=== PATIENT | female | born 1970 | race Caucasian/White ===

== ENCOUNTER 2017-05-10 20:38 | Emergency (ER) | payer OTHER ==
[~2017-05-10] VITALS: Ht 162.6 cm; Wt 89.0 kg
[~2017-05-10 20:38] MED LIST: ATAZ100 PO; CYMB30CA PO; RITO100 PO; Subutex; TRUVTAB2 PO
[2017-05-10 20:52] VITALS: BP 163/70; PULSE 116; RESP 17; TEMP 99.9; O2SAT 98
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
[2017-05-10 21:21] LABS: AUTOMATED NEUTROPHIL # 8.6 TH/MM3 (1.8-7.7); BASOPHIL % 0.1 % (0.0-2.0); EOSINOPHIL % 0.4 % (0.0-4.0); HEMATOCRIT 40.4 % (35.0-46.0); HEMO FLAGS DIFF FINAL; LYMPH % 11.1 % (9.0-44.0); LYMPHOCYTE # 1.2 TH/MM3 (1.0-4.8); MEAN CORPUSCULAR HEMOGLOBIN 31.9 PG (27.0-34.0); MEAN CORPUSCULAR HGB CONC 33.9 % (32.0-36.0); MONO % 8.2 % (0.0-8.0); NEUT % 80.2 % (16.0-70.0); PLATELET COUNT 252 TH/MM3 (150-450); RED CELL DISTRIBUTION WIDTH 14.1 % (11.6-17.2); WHITE BLOOD COUNT 10.7 TH/MM3 (4.0-11.0)
[2017-05-10 21:30] LABS: AMPHETAMINE, URINE NEG (NEG); BARBITURATES, URINE NEG (NEG); COCAINE, URINE POS (NEG)
[2017-05-10 21:39] LABS: ALT (GPT) 39 U/L (10-53)
[2017-05-10 21:41] LABS: ALKALINE PHOSPHATASE 66 U/L (45-117); TOTAL BILIRUBIN ADULT 0.6 MG/DL (0.2-1.0)
[2017-05-10 21:42] LABS: ANION GAP 7 MEQ/L (5-15); AST (GOT) 31 U/L (15-37); BICARBONATE 23.6 MEQ/L (21.0-32.0); BLOOD UREA NITROGEN 21 MG/DL (7-18); CHLORIDE 108 MEQ/L (98-107); GLOMERULAR FILTRATION RATE 51 ML/MIN (>89); POTASSIUM 3.4 MEQ/L (3.5-5.1); SODIUM (NA) 139 MEQ/L (136-145)
[2017-05-10] MEDS ORDERED: SODIUM CHLOR 0.9% 1000 ML INJ 1,000 ML IV ONE ×2 (21:45→22:30)
[2017-05-10 22:23] LABS: BLOOD, URINE NEG (NEG); GLUCOSE,URINE NEG (NEG); KETONE, URINE TRACE mg/dL (NEG); MUCUS URINE FEW /lpf (OCC); NITRITE,URINE NEG (NEG); SQUAMOUS EPITHELIAL CELL URINE 1 /hpf (0-5); URINE COLOR YELLOW (YELLW/STRAW)
[2017-05-10 22:25] LABS: COMMENT (UR) CATH-CULT NOT IND; CULTURE IF INDICATED CATH CULTURE NOT IND
[2017-05-10 23:41] VITALS: BP 154/81; PULSE 99; RESP 15; O2SAT 98
[2017-05-11] MEDS ORDERED: LORazepam 2 MG/ML VIAL IM ONE ×3 (01:45→08:30)
[2017-05-11 02:19] VITALS: BP 143/70; PULSE 97; RESP 22
[2017-05-11] MEDS ORDERED: diphenhydrAMINE HCL 50 MG/ML VIAL IM ONE ×2 (04:00→10:00)
[2017-05-11 06:38] VITALS: RESP 18
[2017-05-11] MEDS ORDERED: LORazepam 1 MG TAB PO ONE (07:45)
[2017-05-11] MEDS ORDERED: LORazepam 2 MG/ML VIAL IM PRN (08:30)
[2017-05-11] MEDS ORDERED: OLANZapine IM 10 MG VIAL IM ONE (08:45)
[2017-05-11] MEDS ORDERED: HALOPERIDOL LACTATE 5 MG/ML AMP IM ONE (10:00)
--- NOTE | 2017-05-11 10:07 | PD ---
History of Present Illness Chief Complaint: Psychiatric Symptoms Time Seen by Provider: 10:00 Travel History International Travel<30 Days: No Contact w/Intl Traveler<30days: No Known affected area: No Legal Status Legal Status: Melendrez Act History of Present Illness: Patient is a 46-year-old female brought in under a Melendrez act for erratic and likely drug induced agitated psychotic behavior. It is unclear at this point as to what the patient may have ingested but she has had IV fluids, Ativan, olanzapine and she continues to be quite agitated. She is fighting her restraints and this physician is concerned about self injury as well as rhabdomyolysis. We will administer 10 mg of Haldol IM with 50 mg of Benadryl IM and repeat her BMP and add a CPK. PFS Past Medical History Anxiety: Yes Depression: Yes Diminished Hearing: Yes ([place] in left) Immune Disorder: Yes (HIV POSITIVE) ?: Not Menopausal: Yes : 7 Para: 3 Miscarriage: 2 : 1 Ectopic : Yes (1993) Dilation and Curettage (D&C): Yes Past Surgical History Surgical History: Unable to Obtain Ear Surgery: Yes (x2 LEFT MASTOIDECTOMIES; RECONSTRUCTION OF LEFT EARDRUM ) Gynecologic Surgery: Yes (ECTOPIC 1993) Tonsillectomy: Yes Other Surgery: Yes (MASTOIDECTOMY) Psychiatric History Psychiatric History Hx Psychiatric Treatment: Patient states that she has been admitted maybe 8-10 times in the past to the crisis unit at [facility]. Patient cut her left wrist in a suicide attempt approx 4 years ago. History of Inpatient Treatment: Yes Social History Hx Alcohol Use: Yes (SOCIAL) Hx Tobacco Use: No (Hx 1PPD) Hx Substance Use: No ([facility], [place], [place]) Substance Use Type: Alcohol, Crack, Marijuana, Amphetamines-Stimulants, Ecstasy , Nicotine/Cigarettes, Luke [facility]-PCP, Prescription Medications, Benzos (Valium, Xanax), Cocaine, Synth Opiates-Pain Pills, Cough-Cold Pills, LSD-[place] Other Substances Used: States takes controlled meds as prescribed. Hx of Substance Use Treatment: Yes Allergies-Medications (Allergen,Severity, Reaction): Coded Allergies: Aztreonam (Verified Allergy, Severe, anemias, 05/10/17) AKA "AZT" Reported Meds & Prescriptions Reported Meds & Active Scripts Active Reported [Subutex] Unknown Dose MDM Medical Decision Making Assessment/Plan Will provide patient with chemical and physical restraints as needed to help keep her safe and others around her safe. Orders Complete Blood Count With Diff (05/10/17 20:44) Comprehensive Metabolic Panel (05/10/17 20:44) Cath For Specimen (05/10/17 20:44) Psych Screen (05/10/17 20:44) Restraints Non-Violent ОЛЕГ.Q3H (05/10/17 20:44) Drug Screen, Random Urine (05/10/17 20:44) Alcohol (Ethanol) (05/10/17 20:44) Sodium Chlor 0.9% 1000 Ml Inj (Ns 1000 M (05/10/17 21:45) Urinalysis - C+S If Indicated (05/10/17 21:41) Sodium Chlor 0.9% 1000 Ml Inj (Ns 1000 M (05/10/17 22:30) Lorazepam Inj (Ativan Inj) (05/11/17 01:45) Diet Regular Basic (05/11/17 Breakfast) Diphenhydramine Inj (Benadryl Inj) (05/11/17 04:00) Restraints Non-Violent ОЛЕГ.Q3H (05/11/17 04:22) Lorazepam (Ativan) (05/11/17 07:45) Lorazepam Inj (Ativan Inj) (05/11/17 07:45) Lorazepam Inj (Ativan Inj) (05/11/17 08:30) Lorazepam Inj (Ativan Inj) (05/11/17 08:30) Olanzapine Inj (Zyprexa Inj) (05/11/17 08:45) Results Vital Signs Date Time Temp Pulse Resp B/P Pulse Ox O2 Delivery O2 Flow Rate FiO2 05/11/17 06:38 18 05/11/17 02:19 97 22 143/70 05/10/17 23:41 99 15 154/81 98 Room Air 05/10/17 20:59 116 17 05/10/17 20:52 99.9 116 17 163/70 98 Laboratory Tests Test 05/10/17 05/10/17 21:00 21:08 White Blood Count 10.7 Red Blood Count 4.30 Hemoglobin 13.7 Hematocrit 40.4 Mean Corpuscular Volume 94.0 Mean Corpuscular Hemoglobin 31.9 Mean Corpuscular Hemoglobin 33.9 Concent Red Cell Distribution Width 14.1 Platelet Count 252 Mean Platelet Volume 7.5 Neutrophils (%) (Auto) 80.2 Lymphocytes (%) (Auto) 11.1 Monocytes (%) (Auto) 8.2 Eosinophils (%) (Auto) 0.4 Basophils (%) (Auto) 0.1 Neutrophils # (Auto) 8.6 Lymphocytes # (Auto) 1.2 Monocytes # (Auto) 0.9 Eosinophils # (Auto) 0.0 Basophils # (Auto) 0.0 CBC Comment DIFF FINAL Differential Comment Sodium Level 139 Potassium Level 3.4 Chloride Level 108 Carbon Dioxide Level 23.6 Anion Gap 7 Blood Urea Nitrogen 21 Creatinine 1.15 Estimat Glomerular Filtration 51 Rate Random Glucose 134 Calcium Level 9.8 Total Bilirubin 0.6 Aspartate Amino Transf 31 (AST/SGOT) Alanine Aminotransferase 39 (ALT/SGPT) Alkaline Phosphatase 66 Total Protein 7.9 Albumin 4.3 Ethyl Alcohol Level LESS THAN 3 Urine Color YELLOW Urine Turbidity HAZY Urine pH 6.0 Urine Specific [place] 1.038 Urine Protein 30 Urine Glucose (UA) NEG Urine Ketones TRACE Urine Occult Blood NEG Urine Nitrite NEG Urine Bilirubin NEG Urine Urobilinogen 2.0 Urine Leukocyte Esterase TRACE Urine RBC 5 Urine WBC 2 Urine Squamous Epithelial 1 Cells Urine Mucus FEW Microscopic Urinalysis Comment CATH-CULT NOT IND Urine Opiates Screen NEG Urine Barbiturates Screen NEG Urine Amphetamines Screen NEG Urine Benzodiazepines Screen POS Urine Cocaine Screen POS Urine Cannabinoids Screen NEG Diagnosis Primary Impression: Medical clearance for psychiatric admission Additional Impression: Drug abuse, cocaine type Condition: Stable Problem Qualifiers Patrice Ibrahim MD May 11, 2017 10:07
[2017-05-11 10:15] VITALS: BP 128/78; PULSE 92; RESP 20
[2017-05-11 11:00] LABS: BICARBONATE 27.5 MEQ/L (21.0-32.0); POTASSIUM 3.7 MEQ/L (3.5-5.1)
[2017-05-11 11:39] LABS: CKMB 3.3 NG/ML (0.5-3.6)
[2017-05-11] MEDS ORDERED: ZIPRASIDONE MESYLATE 20 MG VIAL IM ONE (12:54)
[2017-05-11 14:25] VITALS: BP 118/72; PULSE 78; RESP 18
[2017-05-11 18:40] VITALS: BP 123/58; PULSE 77; RESP 18; O2SAT 96
[2017-05-11 22:16] VITALS: BP 112/59; PULSE 66; RESP 20; TEMP 97.8; O2SAT 97
[2017-05-12 07:09] VITALS: BP 114/58; PULSE 78; RESP 18; O2SAT 96
[2017-05-12 11:15] VITALS: BP 146/68; PULSE 91; RESP 18; O2SAT 97
[2017-05-12 19:00] VITALS: BP 110/64
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
== END 2017-05-12 19:05 | disposition home or self-care (01) ==
LOC: NEPD 20:38 → NEPJ 05-12 19:05
DX: F43.25 Adjustment disorder with mixed disturbance of emotions and conduct (principal); F14.10 Cocaine abuse, uncomplicated; F13.10 Sedative, hypnotic or anxiolytic abuse, uncomplicated; F41.9 Anxiety disorder, unspecified; F17.200 Nicotine dependence, unspecified, uncomplicated; Z21 Asymptomatic human immunodeficiency virus [HIV] infection status
CPT/HCPCS: 80048; 80053; 80307; 81001; 82550; 82552; 85025; 96372; 99285; J1200; J1630; J2060; J7030; P9612; J3486